=== PATIENT | female | born 1950 | race Caucasian/White ===

== ENCOUNTER 2019-06-27 06:12 | Emergency (ER) | payer MEDICARE, OTHER ==
[2019-06-27] MEDS ORDERED: Labetalol 100 MG/20 ML MDV IV ONE (06:13)
[2019-06-27] MEDS ORDERED: Midazolam 1 MG/ML 2 ML SDV IV ONE (06:13)
[2019-06-27] MEDS ORDERED: Rocuronium 100 MG/10 ML MDV IV ONE (06:13)
[2019-06-27] MEDS ORDERED: Etomidate 2 MG/ML 20 ML SDV IVPUSH ONE (06:50)
[2019-06-27] MEDS ORDERED: Rocuronium 100 MG/10 ML MDV IVPUSH ONE (06:50)
[2019-06-27] MEDS ORDERED: Succinylcholine 200 MG/10 ML MDV IV ONE (06:50)
[2019-06-27] MEDS ORDERED: methylPREDNISolone Sodium Succinate 125 MG/2 ML SDV ONE (06:58)
[2019-06-27] MEDS ORDERED: Albuterol/Ipratropium 3.0-0.5 MG/3 ML Neb Soln ONE (06:58)
[2019-06-27] MEDS ORDERED: methylPREDNISolone Sodium Succinate 125 MG/2 ML SDV IVPUSH ONE (07:01)
[2019-06-27] MEDS ORDERED: Albuterol 0.083% 2.5 MG/3 ML Neb Soln ONE (07:03)
[2019-06-27] MEDS ORDERED: Albuterol 0.083% 2.5 MG/3 ML Neb Soln NEB ONE ×2 (07:19→08:20)
[2019-06-27] MEDS ORDERED: Albuterol/Ipratropium 3.0-0.5 MG/3 ML Neb Soln NEB ONE (07:19)
[2019-06-27] MEDS ORDERED: Azithromycin 500 MG in Sodium Chloride 0.9% 250 ML IV ONE (07:26)
[2019-06-27] MEDS ORDERED: cefTRIAXone 1 GM Vial IVPUSH ONE (07:27)
--- NOTE | 2019-06-27 08:28 | EDM.PDOC ---
ED HPI GENERAL MEDICAL PROBLEM - General Stated Complaint: SOB Time Seen by Provider: 06/27/19 06:18 Source of Information: Reports: EMS, Family (Patient's ) History Limitations: Reports: Other (Patient critically ill and with altered mental status and cannot provide me with any information) - History of Present Illness INITIAL COMMENTS - FREE TEXT/NARRATIVE: 68-year-old female who according to her developed a "cold" about 4-5 days ago and has had cough with nasal congestion and some difficulty breathing. For the past 24 hours, her difficulty breathing has gotten worse and particularly last night she had increasing trouble breathing through the night and this morning slipped out of bed and was unable to get up off of the floor and her called 911. When EMS arrived, they noted the patient to be in severe respiratory distress with O2 saturations in the 50% range. They placed her on 100% nonrebreather with O2 saturations climbing to the 70-80% range and transported the patient. When the patient arrived here, her O2 saturations had climbed into the 97-100% range on 100% nonrebreather and the patient was in obvious respiratory distress with increased work of breathing and increased respiratory rate with audible wheezes. She was verbally responsive but unable to give any history and was disoriented to place, time and situation. According to the the patient had not complained of any chest pain. There has been a subjective fever. No vomiting. Decreased activity and decreased po intake yesterday according to the . The has very similar symptoms to his other than the is not having any trouble breathing. Really no other history can be obtained. There are no other associated signs or symptoms. There are no other modifying factors. Onset: Other (5 days ago with worsening difficulty breathing yesterday and through the night.) Duration: Getting Worse Location: Reports: Other (No complaints of pain) Quality: Reports: Other (Nonapplicable) Severity: Severe (Severe respiratory distress) Context: Reports: Other (As above) Associated Symptoms: Reports: No Other Symptoms (Except as above) Treatments COMPONENT ENGINEER: Reports: Oxygen - Related Data Allergies Allergy/AdvReac Type Severity Reaction Status Date / Time No Known Allergies Allergy Verified 08/23/14 20:12 Home Meds: Home Meds Aspirin [Low Dose Aspirin EC] 2 tab PO QAM 08/23/14 [History] Atenolol/Chlorthalidone [Tenoretic 50] 1 tab PO DAILY 08/23/14 [History] Furosemide [Lasix] 1 tab PO DAILY 08/23/14 [History] Insuln Asp Prot/Insulin Aspart [NovoLOG Mix 70-30] 53 unit SQ QPM 08/23/14 [ History] Insuln Asp Prot/Insulin Aspart [NovoLOG Mix 70-30] 60 unit SQ QAM 08/23/14 [ History] Losartan [Cozaar] 1 tab PO QPM 08/23/14 [History] Past Medical History Cardiovascular History: Reports: High Cholesterol, Hypertension, PVD (With carotid arterial disease status post left CEA.) Genitourinary History: Reports: Chronic Renal Insuffiency Neurological History: Reports: CVA Endocrine/Metabolic History: Reports: Diabetes, Type II Dermatologic History: Reports: Venous Stasis Dermatitis (Edema in both lower legs and on Lasix for this.) - Past Surgical History Cardiovascular Surgical History: Reports: Carotid Endarterectomy Social & Family History - Tobacco Use Smoking Status *Q: Current Every Day Smoker - Alcohol Use Alcohol Use History: No - Living Situation & Occupation Living situation: Reports: Social History Comment: Lives at home alone with her . ED ROS GENERAL - Review of Systems Review Of Systems: Unable To Obtain Reason Not Obtained: Patient critically ill ED EXAM, GENERAL - Physical Exam Exam: See Below Exam Limited By: No Limitations General Appearance: Alert, Severe Distress, Obese Eye Exam: Bilateral Eye: EOMI, Normal Inspection, PERRL Ears: Normal External Exam Ear Exam: Bilateral Ear: Auricle Normal Nose: No Blood, Nasal Drainage Throat/Mouth: Normal Oropharynx, Normal Voice, Other (Moist mucous membranes) Head: Atraumatic, Normocephalic Neck: Normal Inspection, Supple, Non-Tender, Full Range of Motion, Other (Large neck) Respiratory/Chest: Respiratory Distress, Decreased Breath Sounds (Poor air movement throughout), Wheezing, Accessory Muscle Use, Retractions, Prolonged Expiration Cardiovascular: Normal Peripheral Pulses, Tachycardia, Other (Patient's body habitus precludes accurate assessment of JVD) Peripheral Pulses: 2+: Radial (L), Radial (R), Dorsalis Pedis (L), Dorsalis Pedis (R) GI/Abdominal: Soft, No Mass, Abnormal Bowel Sounds (Diminished), Other ( Protuberant) Back Exam: Normal Inspection Extremities: Normal Capillary Refill, Other (Chronic venous stasis with chronic and weeping in both lower legs. No deformity noted.) Neurological: No Motor/Sensory Deficits, Disoriented, Slow to Respond Skin Exam: Warm, Dry, No Rash, Erythema (And some open wounds on both lower legs with the chronic venous stasis) ED RESPIRATORY PROCEDURES - Endotracheal Intubation Time of Intubation: 07:04 ET Intubation Indication: Respiratory Failure Preparation: Suction, Balloon Tested, BVM Set Up Airway Assessment: Obese, Large Tongue Pre-Oxygenation: Assisted with BVM, 100% FiO2 Anesthesia Meds: Etomidate (10 mg), Rocuronium (80 mg) Placement: Orotracheal Cords Visualized: Yes Number of Attempts: 2 (Initially used glide scope and was unable to see cords and aborted this attempt and used BVM to ventilate the patient patient's O2 saturations did drop to the 60s but intubated with a 7.5 ET tube orally. Immediately by Lopressor for apparent the O2 saturations quickly came up to the 100% range) Confirmed By: CO2 Indicator, Bilateral Breath Sounds, Chest Xray Tube Secured By: By Provider Endotracheal Intubation Comment: In addition, an orogastric tube was placed the physician and confirmed with insufflation of air via 60 mL syringe and auscultation over the stomach there was also definite gastric contents aspirated. Chest x-ray did show NG tube going into the stomach. EKG INTERPRETATION EKG Date: 06/27/19 Time: 07:17 Rhythm: NSR Rate (Beats/Min): 97 [place]: Normal P-Wave: Enlarged QRS: Normal ST-T: Normal QT: Normal Comparison: NA - No Prior EKG Course - Vital Signs Last Recorded V/S: Last Vital Signs Temp 36.7 C 06/27/19 08:10 Pulse 109 H 06/27/19 06:15 Resp 30 H 06/27/19 06:15 BP 203/87 H 06/27/19 06:15 Pulse Ox 30 L 06/27/19 06:15 - Orders/Labs/Meds Orders: Active Orders 24 hr Category Date Time Status EKG Documentation Completion [RC] ASDIRECTED Care 06/27/19 10:59 Active RT Aerosol Therapy [RC] ASDIRECTED Care 06/27/19 08:20 Active RT Aerosol Therapy [RC] ASDIRECTED Care 06/27/19 10:07 Active RT Aerosol Therapy [RC] ASDIRECTED Care 06/27/19 10:09 Active Labs: Laboratory Tests 06/27/19 06/27/19 06/27/19 Range/Units 06:45 06:45 06:45 WBC 10.7 (4.5-12.0) X10-3/uL RBC 5.10 (3.23-5.20) x10(6)uL Hgb 15.8 H (11.5-15.5) g/dL Hct 49.8 (30.0-51.3) % MCV 97.7 H (80-96) fL MCH 30.9 (27.7-33.6) pg MCHC 31.6 L (32.2-35.4) g/dL RDW 14.0 (11.5-15.5) % Plt Count 240 (125-369) X10(3)uL MPV 7.8 (7.4-10.4) fL Add Manual Diff Yes Neutrophils % (Manual) 83 H (46-82) % Band Neutrophils % 1 (0-6) % Lymphocytes % (Manual) 12 L (13-37) % Monocytes % (Manual) 4 (4-12) % PT (8.7-11.1) INR (0.89-1.13) APTT (24.4-33.2) SECONDS ABG pH (7.35-7.45) ABG pCO2 (35-45) mmHg ABG pO2 (83-108) mmHg ABG HCO3 (22-26) mmol/L ABG O2 Saturation (96-97) % ABG Base Excess (-2-2) Avi Test POC VBG pH (7.31-7.41) POC VBG pCO2 (41-51) mmHG POC VBG HCO3 (23-28) mmol/L POC VBG Total CO2 (24-29) mmol/L POC VBG Base Excess (-2-3) mmol/L O2 Delivery Device Oxygen Flow Rate L Sodium 136 (135-145) mmol/L Potassium 5.1 (3.5-5.3) mmol/L Chloride 96 L (100-110) mmol/L Carbon Dioxide 34 H (21-32) mmol/L BUN 53 H (7-18) mg/dL Creatinine 1.9 H (0.55-1.02) mg/dL Est Cr Clr Drug Dosing TNP Estimated GFR (MDRD) 26 L (>60) BUN/Creatinine Ratio 27.9 H (9-20) Glucose 282 H (80-116) mg/dL Lactic Acid (0.4-2.0) mmol/L Calcium 9.0 (8.6-10.2) mg/dL Magnesium 1.8 (1.8-2.5) mg/dL Total Bilirubin 0.4 (0.1-1.3) mg/dL AST 27 H (5-25) IU/L ALT 20 (12-36) U/L Alkaline Phosphatase 85 (56-112) IU/L Troponin I < 0.017 L (<0.017-0.056) ng/mL C-Reactive Protein (0.5-0.9) mg/dL NT-Pro-B Natriuret Pep 1484 H* (<=125) pg/mL Total Protein 7.6 (6.0-8.0) g/dL Albumin 3.1 L (3.2-4.6) g/dL Globulin 4.5 g/dL Albumin/Globulin Ratio 0.7 06/27/19 06/27/19 06/27/19 Range/Units 06:45 06:45 06:45 WBC (4.5-12.0) X10-3/uL RBC (3.23-5.20) x10(6)uL Hgb (11.5-15.5) g/dL Hct (30.0-51.3) % MCV (80-96) fL MCH (27.7-33.6) pg MCHC (32.2-35.4) g/dL RDW (11.5-15.5) % Plt Count (125-369) X10(3)uL MPV (7.4-10.4) fL Add Manual Diff Neutrophils % (Manual) (46-82) % Band Neutrophils % (0-6) % Lymphocytes % (Manual) (13-37) % Monocytes % (Manual) (4-12) % PT 9.6 (8.7-11.1) INR 0.92 (0.89-1.13) APTT 30.2 (24.4-33.2) SECONDS ABG pH (7.35-7.45) ABG pCO2 (35-45) mmHg ABG pO2 (83-108) mmHg ABG HCO3 (22-26) mmol/L ABG O2 Saturation (96-97) % ABG Base Excess (-2-2) Avi Test POC VBG pH (7.31-7.41) POC VBG pCO2 (41-51) mmHG POC VBG HCO3 (23-28) mmol/L POC VBG Total CO2 (24-29) mmol/L POC VBG Base Excess (-2-3) mmol/L O2 Delivery Device Oxygen Flow Rate L Sodium (135-145) mmol/L Potassium (3.5-5.3) mmol/L Chloride (100-110) mmol/L Carbon Dioxide (21-32) mmol/L BUN (7-18) mg/dL Creatinine (0.55-1.02) mg/dL Est Cr Clr Drug Dosing Estimated GFR (MDRD) (>60) BUN/Creatinine Ratio (9-20) Glucose (80-116) mg/dL Lactic Acid 1.3 (0.4-2.0) mmol/L Calcium (8.6-10.2) mg/dL Magnesium (1.8-2.5) mg/dL Total Bilirubin (0.1-1.3) mg/dL AST (5-25) IU/L ALT (12-36) U/L Alkaline Phosphatase (56-112) IU/L Troponin I (<0.017-0.056) ng/mL C-Reactive Protein 0.3 L (0.5-0.9) mg/dL NT-Pro-B Natriuret Pep (<=125) pg/mL Total Protein (6.0-8.0) g/dL Albumin (3.2-4.6) g/dL Globulin g/dL Albumin/Globulin Ratio 06/27/19 06/27/19 Range/Units 06:55 08:50 WBC (4.5-12.0) X10-3/uL RBC (3.23-5.20) x10(6)uL Hgb (11.5-15.5) g/dL Hct (30.0-51.3) % MCV (80-96) fL MCH (27.7-33.6) pg MCHC (32.2-35.4) g/dL RDW (11.5-15.5) % Plt Count (125-369) X10(3)uL MPV (7.4-10.4) fL Add Manual Diff Neutrophils % (Manual) (46-82) % Band Neutrophils % (0-6) % Lymphocytes % (Manual) (13-37) % Monocytes % (Manual) (4-12) % PT (8.7-11.1) INR (0.89-1.13) APTT (24.4-33.2) SECONDS ABG pH 7.25 L (7.35-7.45) ABG pCO2 71 H* (35-45) mmHg ABG pO2 372 H (83-108) mmHg ABG HCO3 30 H (22-26) mmol/L ABG O2 Saturation 100 H (96-97) % ABG Base Excess -0.2 (-2-2) Avi Test Passed POC VBG pH 7.15 L (7.31-7.41) POC VBG pCO2 96.8 H (41-51) mmHG POC VBG HCO3 33.4 H (23-28) mmol/L POC VBG Total CO2 36 H (24-29) mmol/L POC VBG Base Excess 4 H (-2-3) mmol/L O2 Delivery Device Ventilator Oxygen Flow Rate 100 L Sodium (135-145) mmol/L Potassium (3.5-5.3) mmol/L Chloride (100-110) mmol/L Carbon Dioxide (21-32) mmol/L BUN (7-18) mg/dL Creatinine (0.55-1.02) mg/dL Est Cr Clr Drug Dosing Estimated GFR (MDRD) (>60) BUN/Creatinine Ratio (9-20) Glucose (80-116) mg/dL Lactic Acid (0.4-2.0) mmol/L Calcium (8.6-10.2) mg/dL Magnesium (1.8-2.5) mg/dL Total Bilirubin (0.1-1.3) mg/dL AST (5-25) IU/L ALT (12-36) U/L Alkaline Phosphatase (56-112) IU/L Troponin I (<0.017-0.056) ng/mL C-Reactive Protein (0.5-0.9) mg/dL NT-Pro-B Natriuret Pep (<=125) pg/mL Total Protein (6.0-8.0) g/dL Albumin (3.2-4.6) g/dL Globulin g/dL Albumin/Globulin Ratio Meds: Medications Discontinued Medications Generic Name Dose Route Start Last Admin Trade Name Geovanny GATES Reason Stop Dose Admin Albuterol Confirm 06/27/19 07:03 06/27/19 09:36 Proventil Neb Soln Administered 06/27/19 07:04 Not Given Dose 2.5 mg .ROUTE .STK-MED ONE Albuterol 5 mg 06/27/19 08:20 06/27/19 08:25 Proventil Neb Soln NEB 06/27/19 08:21 5 mg ONETIME ONE Administration Albuterol 2.5 mg 06/27/19 07:19 06/27/19 07:19 Proventil Neb Soln NEB 06/27/19 07:20 2.5 mg ONETIME ONE Administration Albuterol/Ipratropium Confirm 06/27/19 06:58 06/27/19 09:36 Duoneb 3.0-0.5 Mg/3 Ml Administered 06/27/19 06:59 Not Given Dose 3 ml .ROUTE .STK-MED ONE Albuterol/Ipratropium 3 ml 06/27/19 07:19 06/27/19 07:19 Duoneb 3.0-0.5 Mg/3 Ml NEB 06/27/19 07:20 3 ml ONETIME ONE Administration Ceftriaxone Sodium 1 gm 06/27/19 07:27 06/27/19 07:52 Rocephin IVPUSH 06/27/19 07:28 1 gm ONETIME ONE Administration Etomidate 10 mg 06/27/19 06:50 06/27/19 06:42 Amidate IVPUSH 06/27/19 06:51 10 mg ONETIME ONE Administration Fentanyl Confirm 06/27/19 08:58 06/27/19 10:18 Sublimaze Administered 06/27/19 08:59 Not Given Dose 100 mcg .ROUTE .STK-MED ONE Fentanyl 100 mcg 06/27/19 09:00 06/27/19 09:00 Sublimaze IVPUSH 06/27/19 09:01 100 mcg ONETIME ONE Administration Azithromycin 500 mg/ Sodium 250 mls @ 250 mls/hr 06/27/19 07:26 06/27/19 08: 02 Chloride IV 06/27/19 08:25 250 mls/hr ONETIME ONE Administration Methylprednisolone Sodium Succinate Confirm 06/27/19 06:58 06/27/19 10:11 Solu-Medrol Administered 06/27/19 06:59 Not Given Dose 125 mg .ROUTE .STK-MED ONE Methylprednisolone Sodium Succinate 125 mg 06/27/19 07:01 06/27/19 07:01 Solu-Medrol IVPUSH 06/27/19 07:02 125 mg ONETIME ONE Administration Midazolam HCl Confirm 06/27/19 06:53 06/27/19 10:31 Versed 1 Mg/Ml Administered 06/27/19 06:54 Not Given Dose 2 mg .ROUTE .STK-MED ONE Midazolam HCl Confirm 06/27/19 08:58 06/27/19 10:16 Versed 1 Mg/Ml Administered 06/27/19 08:59 Not Given Dose 2 mg .ROUTE .STK-MED ONE Midazolam HCl 2 mg 06/27/19 09:02 06/27/19 09:02 Versed 1 Mg/Ml IVPUSH 06/27/19 09:03 2 mg ONETIME ONE Administration Rocuronium [place] 80 mg 06/27/19 06:50 06/27/19 06:46 Zemuron IVPUSH 06/27/19 06:51 80 mg NOW ONE Administration - Radiology Interpretation Free Text/Narrative:: Portable chest x-ray shows good ET tube placement with ET tube about 3 cm above the james. The orogastric tube seen going into the stomach. There does appear to be infiltrates in the bases bilaterally. - Re-Assessments/Exams Free Text/Narrative Re-Assessment/Exam: 06/27/19 07:10: The patient has been intubated with a 7.5 ET tube using RSI technique (etomidate and rocuronium were used). Her blood pressure is in the 180 systolic range. Heart rate is in the 100 range. Expirations are 100% on 100 % FiO2, rate of 10 and tidal volume of 500. The patient has received Solu- Medrol 125 mg IV and is receiving nebs/albuterol neb combination nebulizer treatment. The patient has received Versed for additional sedation. The patient will need transfer to a facility with ICU and critical care/pulmonary medicine services which are not available at [facility]. I will discuss the patient's case with the doctors at [facility] in [place] as the as directed me to talk to them. 06/27/19 07:20: I had discussed patient's case with , tank assembler at [facility] in [place], he is requiring additional information before he would discuss accepting the patient. Laboratory tests are back at this time and show a BUN of 53 and a creatinine of 1.9. She also had an elevated blood glucose. Her hemoglobin was 15. Her chest x-ray shows no evidence of congestive heart failure or pulmonary edema. An EKG is being performed at this time. He is results of the EKG and the patient's and and BNP. 06/27/19 07:40: The patient's EKG shows no STEMI pattern and was essentially a normal EKG. The troponin and BNP are still pending at this point. I did call and discuss the patient's case with Dr. Pineda, tank assembler at [facility] in [place], and he would accept the patient in transfer but if the troponin is abnormal then CTA of the chest may be necessary. At this point we're unable to get ground transport for transferring the patient and helicopter area ambulance is not able to fly secondary to weather. We are attempting to arrange fixed wing air transport. 06/27/19 08:00: Patient has remained with O2 saturations in the 100% range on current settings (tidal volume of 500, rate of 10, FiO2 of 100%). Her troponin is normal. Her proBNP is 1484. At this point I did call and discussed the patient's case again with Dr. Pindea and he does not feel that the patient needs CTA of the chest at this point. Fixed wing air transport is coming and should be landing at the airport at 8:15 or 8:20 AM. Her blood pressure is now in the 120 to 130 systolic range with a heart rate in the 80-90 range. The patient has received a nebulizer treatment and she is still having high PIPs. The patient will be suctioned and we will give an additional nebulizer treatment with albuterol. The patient is also being given Rocephin 1 g IV and Zithromax 500 mg IV blood cultures 2 have been obtained and a lactic acid is pending. I will have the patient's blood gas repeated. 06/27/19 08:50: Fixed wing air ambulance crew is here and is packaging the patient for transport. The patient continues with high PIP's and has been suctioned again with scant secretions. She still has bilateral wheezes and has received her second nebulizer treatment in the emergency department. Her repeat blood gas showed a PCO2 of 71 with a pH of 7.25. Her PO2 was 342. Lactic acid was negative. Departure - Departure Time of Disposition: 09:24 Disposition: DC/Tfer to [facility] 02 Condition: Critical Clinical Impression: Chronic renal insufficiency, stage III (moderate) Respiratory failure with hypoxia and hypercapnia Qualifiers: Chronicity: acute Qualified Code(s): J96.01 - Acute respiratory failure with hypoxia Bilateral pneumonia Qualifiers: Pneumonia type: due to unspecified organism Lung location: lower lobe of lung Qualified Code(s): J18.9 - Pneumonia, unspecified organism Reactive airway disease Qualifiers: Asthma severity: severe Asthma persistence: persistent Asthma complication type : with status asthmaticus Qualified Code(s): J45.52 - Severe persistent asthma with status asthmaticus - Discharge Information Referrals: Johnathan White MD [Primary Care Provider] - Forms: ED Department Discharge Critical Care Note - Critical Care Note Total Time (mins): 120 Comments: Total critical care time spent with the patient was 120 minutes. Sepsis Event Note - Focused Exam Date Exam was Performed: 06/28/19 Time Exam was Performed: 08:59 - My Orders Last 24 Hours: My Active Orders 06/27/19 08:20 RT Aerosol Therapy [RC] ASDIRECTED 06/27/19 10:07 RT Aerosol Therapy [RC] ASDIRECTED 06/27/19 10:09 RT Aerosol Therapy [RC] ASDIRECTED 06/27/19 10:59 EKG Documentation Completion [RC] ASDIRECTED - Assessment/Plan Last 24 Hours: My Active Orders 06/27/19 08:20 RT Aerosol Therapy [RC] ASDIRECTED 06/27/19 10:07 RT Aerosol Therapy [RC] ASDIRECTED 06/27/19 10:09 RT Aerosol Therapy [RC] ASDIRECTED 06/27/19 10:59 EKG Documentation Completion [RC] ASDIRECTED
[2019-06-27] MEDS ORDERED: fentaNYL 100 MCG/2 ML SDV ONE (08:58)
[2019-06-27] MEDS ORDERED: Midazolam 1 MG/ML 2 ML SDV ONE (08:58)
[2019-06-27] MEDS ORDERED: fentaNYL 100 MCG/2 ML SDV IVPUSH ONE (09:00)
[2019-06-27] MEDS ORDERED: Midazolam 1 MG/ML 2 ML SDV IVPUSH ONE (09:02)
[2019-06-27 09:48] VITALS: BP 203/87; PULSE 109
[2019-06-27] MEDS: Midazolam 1 MG/ML 2 ML SDV ONE ×2 (10:22→10:31)
== END 2019-06-27 09:24 ==
LOC: FB.ED 06:12
DX: J96.01 Acute respiratory failure with hypoxia (principal); J18.9 Pneumonia, unspecified organism; J45.52 Severe persistent asthma with status asthmaticus; E11.22 Type 2 diabetes mellitus with diabetic chronic kidney disease; I12.9 Hypertensive chronic kidney disease with stage 1 through stage 4 chronic kidney disease, or unspecified chronic kidney disease; N18.3 Chronic kidney disease, stage 3 (moderate); F17.200 Nicotine dependence, unspecified, uncomplicated; Z79.82 Long term (current) use of aspirin; Z79.899 Other long term (current) drug therapy; Z86.73 Personal history of transient ischemic attack (TIA), and cerebral infarction without residual deficits
CPT/HCPCS: 31500; 36410; 36415; 36600; 71045; 80053; 82803; 82962; 83605; 83735; 83880; 84484; 85025; 85610; 85730; 86140; 87040; 87804; 87804-59; 93005; 94640; 96365; 96375; 99291; 99291-25; 99292; J0330; J0456; J0696; J2250; J2930; J3010; J3490; J7050; J7620-GY

== ENCOUNTER 2019-12-19 07:34 | Emergency (ER) | payer MEDICARE, OTHER ==
[2019-12-19] MEDS ORDERED: Sodium Chloride 0.9% 10 ML Syringe FLUSH PRN (08:30)
--- NOTE | 2019-12-19 08:47 | EDM.PDOC ---
ED HPI GENERAL MEDICAL PROBLEM - General Chief Complaint: Lower Extremity Injury/Pain Stated Complaint: LT HIP PAIN Time Seen by Provider: 12/19/19 08:10 Source of Information: Reports: Patient History Limitations: Reports: No Limitations - History of Present Illness INITIAL COMMENTS - FREE TEXT/NARRATIVE: Patient presented to the ED from the [facility] because of left hip pain. She fell from her recliner last night and landed on her left hip. Since then she was not able to ambulate. Left Hip Pain Score (Numeric/FACES): 8 - Related Data Allergies Allergy/AdvReac Type Severity Reaction Status Date / Time No Known Allergies Allergy Verified 08/23/14 20:12 Home Meds: Home Meds Aspirin [Low Dose Aspirin EC] 2 tab PO QAM 08/23/14 [History] Atenolol/Chlorthalidone [Tenoretic 50] 1 tab PO DAILY 08/23/14 [History] Furosemide [Lasix] 1 tab PO DAILY 08/23/14 [History] Insuln Asp Prot/Insulin Aspart [NovoLOG Mix 70-30] 53 unit SQ QPM 08/23/14 [History] Insuln Asp Prot/Insulin Aspart [NovoLOG Mix 70-30] 60 unit SQ QAM 08/23/14 [History] Losartan [Cozaar] 1 tab PO QPM 08/23/14 [History] Past Medical History Cardiovascular History: Reports: High Cholesterol, Hypertension, PVD (With carotid arterial disease status post left CEA.) Genitourinary History: Reports: Chronic Renal Insuffiency Neurological History: Reports: CVA Endocrine/Metabolic History: Reports: Diabetes, Type II Dermatologic History: Reports: Venous Stasis Dermatitis (Edema in both lower legs and on Lasix for this.) - Past Surgical History Cardiovascular Surgical History: Reports: Carotid Endarterectomy Social & Family History - Family History Family Medical History: Noncontributory - Tobacco Use Smoking Status *Q: Former Smoker Used Tobacco, but Quit: Yes - Living Situation & Occupation Living situation: Reports: Review of Systems - Review of Systems Review Of Systems: See Below Constitutional: Reports: No Symptoms Ears: Reports: No Symptoms Nose: Reports: No Symptoms Mouth/Throat: Reports: No Symptoms Respiratory: Reports: Wheezing Cardiovascular: Reports: No Symptoms GI/Abdominal: Reports: No Symptoms Musculoskeletal: Reports: Other (left hip pain) Skin: Reports: No Symptoms Neurological: Reports: No Symptoms ED EXAM, GENERAL - Physical Exam Exam: See Below Exam Limited By: No Limitations General Appearance: Alert, No Apparent Distress Eye Exam: Bilateral Eye: PERRL Ears: Normal External Exam, Normal Canal Nose: Normal Inspection, Normal Mucosa Throat/Mouth: Normal Inspection, Normal Lips, Normal Teeth Head: Atraumatic, Normocephalic Neck: Normal Inspection, Supple, Non-Tender, Full Range of Motion Respiratory/Chest: No Respiratory Distress, Lungs Clear, Normal Breath Sounds, No Accessory Muscle Use, Chest Non-Tender Cardiovascular: Normal Peripheral Pulses, Regular Rate, Rhythm, No Edema, No Gallop, No JVD, No Murmur, No Rub Back Exam: Normal Inspection, Full Range of Motion Extremities: Normal Inspection, Normal Range of Motion, Other (tenderness left hip) Neurological: Alert, Oriented, CN II-XII Intact, Normal Cognition Course - Vital Signs Text/Narrative:: Labs/EKG/CXR-pending Case discussed with Dr Jones Dilaudid 2 mg IV x1 Rafael was informed of patient's condition and the transfer to [place] Last Recorded V/S: Last Vital Signs Temp 37.3 C 12/19/19 08:07 Pulse 77 12/19/19 08:07 Resp 16 12/19/19 08:07 BP 105/69 12/19/19 08:07 Pulse Ox 87 L 12/19/19 08:07 - Orders/Labs/Meds Orders: Active Orders 24 hr Category Date Time Status Chest 1V Frontal [CR] Stat Exams 12/19/19 08:30 Ordered Hip Min 2V or 3V w Pelvis Lt [CR] Stat Exams 12/19/19 07:38 Taken CBC WITH AUTO DIFF [HEME] Stat Lab 12/19/19 08:30 Ordered COMPREHENSIVE METABOLIC PN,CMP [CHEM] Stat Lab 12/19/19 08:30 Ordered CORONAVIRUS COVID-19 PCR PHL Stat Lab 12/19/19 08:31 Ordered INR,PT,PROTHROMBIN TIME [COAG] Stat Lab 12/19/19 08:30 Ordered PTT,PARTIAL THROMBOPLSTIN TIME [COAG] Stat Lab 12/19/19 08:30 Ordered Sodium Chloride 0.9% [Saline Flush] Med 12/19/19 08:30 Ordered 10 ml FLUSH ASDIRECTED PRN Saline Lock Insert [OM.PC] Routine Oth 12/19/19 08:30 Ordered Medication Orders Sodium Chloride (Saline Flush) 10 ml FLUSH ASDIRECTED PRN PRN Reason: Keep Vein Open Meds: Medications Generic Name Dose Route Start Last Admin Trade Name Freq PRN Reason Stop Dose Admin Sodium Chloride 10 ml 12/19/19 08:30 Saline Flush FLUSH ASDIRECTED PRN Keep Vein Open Departure - Departure Time of Disposition: 08:50 Disposition: DC/Tfer to Acute Hospital 02 Condition: Good Clinical Impression: Femoral fracture - Discharge Information Referrals: Johnathan White MD [Primary Care Provider] - Sepsis Event Note (ED) - Evaluation Sepsis Screening Result: No Definite Risk - Focused Exam Vital Signs: Vital Signs Temp Pulse Resp BP Pulse Ox 12/19/19 08:07 37.3 C 77 16 105/69 87 L - My Orders Last 24 Hours: My Active Orders 12/19/19 07:38 Hip Min 2V or 3V w Pelvis Lt [CR] Stat 12/19/19 08:30 Chest 1V Frontal [CR] Stat CBC WITH AUTO DIFF [HEME] Stat COMPREHENSIVE METABOLIC PN,CMP [CHEM] Stat INR,PT,PROTHROMBIN TIME [COAG] Stat PTT,PARTIAL THROMBOPLSTIN TIME [COAG] Stat Sodium Chloride 0.9% [Saline Flush] 10 ml FLUSH ASDIRECTED PRN Saline Lock Insert [OM.PC] Routine 12/19/19 08:31 CORONAVIRUS COVID-19 PCR PHL Stat - Assessment/Plan Last 24 Hours: My Active Orders 12/19/19 07:38 Hip Min 2V or 3V w Pelvis Lt [CR] Stat 12/19/19 08:30 Chest 1V Frontal [CR] Stat CBC WITH AUTO DIFF [HEME] Stat COMPREHENSIVE METABOLIC PN,CMP [CHEM] Stat INR,PT,PROTHROMBIN TIME [COAG] Stat PTT,PARTIAL THROMBOPLSTIN TIME [COAG] Stat Sodium Chloride 0.9% [Saline Flush] 10 ml FLUSH ASDIRECTED PRN Saline Lock Insert [OM.PC] Routine 12/19/19 08:31 CORONAVIRUS COVID-19 PCR PHL Stat
[2019-12-19] MEDS ORDERED: HYDROmorphone 2 MG/ML SDV IVPUSH ONE (08:49)
[2019-12-19] MEDS ORDERED: Sodium Chloride 0.9% 1,000 ML IV SCH (09:00)
--- NOTE | 2019-12-19 12:19 | CR ---
INDICATION: COPD. CHEST ONE VIEW: AP upright portable view of the chest was obtained 12/19/19 and compared with 11/21/19 and 06/27/19. The heart appears enlarged. The aorta is tortuous with calcification in the arch. The possibility of some infiltrate at the the left lung base is a consideration versus atelectasis in that area. Evidence of exogenous obesity is again noted. MTDD
--- NOTE | 2019-12-19 12:25 | CR ---
INDICATION: Left hip pain related to a fall. LEFT HIP WITH PELVIS: Two frontal views of the pelvis with a frontal view of the left hip and a lateral - oblique view of the left hip revealed a femoral neck fracture extending from the lateral aspect of the femoral head into the medial aspect of the intertrochanteric area with lateral angulation at the fracture site. Degenerative changes are noted at the hip joints with the joint spaces fairly well preserved. Mild degenerative changes are also noted at the sacroiliac joints. More prominent hypertrophic degenerative changes noted in the visualized lumbosacral spine with evidence of disk disease. Incidentally noted were arterial calcifications. IMPRESSION: Femoral neck fracture with moderate deformity on the left. MTDD
[2019-12-19 22:07] VITALS: BP 147/82; PULSE 79
== END 2019-12-19 09:45 ==
LOC: FB.ED 07:34
DX: S72.002A Fracture of unspecified part of neck of left femur, initial encounter for closed fracture (principal); I12.9 Hypertensive chronic kidney disease with stage 1 through stage 4 chronic kidney disease, or unspecified chronic kidney disease; E11.22 Type 2 diabetes mellitus with diabetic chronic kidney disease; N18.9 Chronic kidney disease, unspecified; E11.51 Type 2 diabetes mellitus with diabetic peripheral angiopathy without gangrene; Z86.73 Personal history of transient ischemic attack (TIA), and cerebral infarction without residual deficits; Z87.891 Personal history of nicotine dependence; Z79.899 Other long term (current) drug therapy; W08.XXXA Fall from other furniture, initial encounter
CPT/HCPCS: 36415; 71045; 73502-LT; 80053; 85025; 85610; 85730; 96374; 99284-25; J1170; J7030; U0002

== ENCOUNTER 2020-02-19 06:40 | Emergency (ER) | payer MEDICARE, OTHER ==
[2020-02-19 08:12] LABS: HEMOGLOBIN A1C 7.8 % (<5.7)
--- NOTE | 2020-02-19 08:19 | EDM.PDOC ---
ED HPI GENERAL MEDICAL PROBLEM - General Chief Complaint: Chest Pain Stated Complaint: CHEST PAIN Time Seen by Provider: 02/19/20 07:10 Source of Information: Reports: Patient, Long Term Records, Old Records History Limitations: Reports: No Limitations - History of Present Illness INITIAL COMMENTS - FREE TEXT/NARRATIVE: Julia comes to [facility] ED from SNF with a reported episode of chest heaviness and SOB at 2 am this morning, sxs lasting about 15 minutes and then subsided. There was no khushbu chest pain, palpitations, diaphoresis, wheezing or GI upset. She has been having some intermittent cough over the past 2 days. She is currently asx. Chest Pain Score (Numeric/FACES): 3 - Related Data Allergies Allergy/AdvReac Type Severity Reaction Status Date / Time No Known Allergies Allergy Verified 08/23/14 20:12 Home Meds: Home Meds Aspirin [Low Dose Aspirin EC] 2 tab PO QAM 08/23/14 [History] Atenolol/Chlorthalidone [Tenoretic 50] 1 tab PO DAILY 08/23/14 [History] Furosemide [Lasix] 1 tab PO DAILY 08/23/14 [History] Insuln Asp Prot/Insulin Aspart [NovoLOG Mix 70-30] 53 unit SQ QPM 08/23/14 [History] Insuln Asp Prot/Insulin Aspart [NovoLOG Mix 70-30] 60 unit SQ QAM 08/23/14 [History] Losartan [Cozaar] 1 tab PO QPM 08/23/14 [History] Past Medical History Cardiovascular History: Reports: High Cholesterol, Hypertension, PVD Genitourinary History: Reports: Chronic Renal Insuffiency Neurological History: Reports: CVA Endocrine/Metabolic History: Reports: Diabetes, Type II Dermatologic History: Reports: Venous Stasis Dermatitis - Past Surgical History Cardiovascular Surgical History: Reports: Carotid Endarterectomy Social & Family History - Family History Family Medical History: Noncontributory - Tobacco Use Smoking Status *Q: Unknown Ever Smoked - Living Situation & Occupation Living situation: Reports: ED ROS GENERAL - Review of Systems Review Of Systems: See Below Constitutional: Reports: No Symptoms HEENT: Reports: No Symptoms Respiratory: Reports: Cough Cardiovascular: Reports: Other (chest heaviness) Endocrine: Reports: No Symptoms GI/Abdominal: Reports: No Symptoms : Reports: No Symptoms Musculoskeletal: Reports: No Symptoms Skin: Reports: No Symptoms Neurological: Reports: Pre-Existing Deficit (L hemiparesis) Psychiatric: Reports: No Symptoms Hematologic/Lymphatic: Reports: No Symptoms Immunologic: Reports: No Symptoms ED EXAM, GENERAL - Physical Exam Exam: See Below Exam Limited By: Physical Impairment General Appearance: Alert, WD/WN, No Apparent Distress, Obese Eye Exam: Bilateral Eye: EOMI, Normal Inspection, PERRL Ears: Normal External Exam Nose: Normal Inspection Throat/Mouth: Normal Inspection, Normal Voice Neck: Normal Inspection, Supple, Non-Tender Respiratory/Chest: Lungs Clear, Normal Breath Sounds, Chest Non-Tender Cardiovascular: Regular Rate, Rhythm, No Gallop, No JVD, No Murmur GI/Abdominal: Normal Bowel Sounds, Soft, Non-Tender, No Organomegaly, No Distention, No Mass (Female) Exam: Deferred Rectal (Female) Exam: Deferred Back Exam: Normal Inspection Extremities: Other (L hemiparesis) Neurological: Alert, Oriented, CN II-XII Intact Psychiatric: Normal Affect, Normal Mood Skin Exam: Warm, Dry, Intact, No Rash, Ecchymosis Lymphatic: No Adenopathy Course - Vital Signs Text/Narrative:: Following assessment, some screening labs were performed, and note: Hgb 12.1 gm, WBC 11,000, plts 248,000; ddimer .78; Troponin I normal; BUN 33, Cr 1.4, nonFBS 238 mg%; HgbA1c 7.8%; UA pending; port chest x ray: mild cardiac enlargement, no active infiltrate. She is medically cleared to return to SNF. Last Recorded V/S: Last Vital Signs Temp 36.6 C 02/19/20 06:55 Pulse 85 02/19/20 06:55 Resp 16 02/19/20 06:55 BP 152/70 H 02/19/20 06:55 Pulse Ox 95 02/19/20 06:55 - Orders/Labs/Meds Orders: Active Orders 24 hr Category Date Time Status EKG Documentation Completion [RC] ASDIRECTED Care 02/19/20 07:20 Active Chest 1V Frontal [CR] Stat Exams 02/19/20 07:19 Taken URINALYSIS W/MICROSCOPIC [UA W/MICROSCOPIC] [URIN] Stat Lab 02/19/20 07:19 Ordered EKG 12 Lead [EK] Routine Ther 02/19/20 07:19 Ordered Labs: Laboratory Tests 02/19/20 02/19/20 02/19/20 Range/Units 07:45 07:45 07:45 WBC 11.0 (4.5-12.0) X10-3/uL RBC 4.12 (3.23-5.20) x10(6)uL Hgb 12.1 (11.5-15.5) g/dL Hct 37.5 (30.0-51.3) % MCV 91.1 (80-96) fL MCH 29.3 (27.7-33.6) pg MCHC 32.2 (32.2-35.4) g/dL RDW 14.3 (11.5-15.5) % Plt Count 248 (125-369) X10(3)uL MPV 8.0 (7.4-10.4) fL Neut % (Auto) 63.8 (46-82) % Lymph % (Auto) 21.6 (13-37) % [place] % (Auto) 5.9 (4-12) % Eos % (Auto) 8 H (1.0-5.0) % Baso % (Auto) 0 (0-2) % Neut # (Auto) 7.0 (1.6-8.3) # Lymph # (Auto) 2.4 (0.6-5.0) # [place] # (Auto) 0.7 (0.0-1.3) # Eos # (Auto) 0.9 H (0.0-0.8) # Baso # (Auto) 0.0 (0.0-0.2) # D-Dimer, Quantitative 0.78 H (0.0-0.59) mg/LFEU Sodium 136 (135-145) mmol/L Potassium 4.5 (3.5-5.3) mmol/L Chloride 98 L (100-110) mmol/L Carbon Dioxide 34 H (21-32) mmol/L BUN 33 H D (7-18) mg/dL Creatinine 1.4 H (0.55-1.02) mg/dL Est Cr Clr Drug Dosing TNP Estimated GFR (MDRD) 37 L (>60) BUN/Creatinine Ratio 23.6 H (9-20) Glucose 238 H D (80-116) mg/dL Hemoglobin A1c (<5.7) % Calcium 10.0 (8.6-10.2) mg/dL Total Bilirubin 0.3 (0.1-1.3) mg/dL AST 25 (5-25) IU/L ALT 33 D (12-36) U/L Alkaline Phosphatase 79 (56-112) IU/L Troponin I (4.0-60.3) pg/mL Total Protein 6.3 (6.0-8.0) g/dL Albumin 2.9 L (3.2-4.6) g/dL Globulin 3.4 g/dL Albumin/Globulin Ratio 0.9 02/19/20 02/19/20 Range/Units 07:45 07:45 WBC (4.5-12.0) X10-3/uL RBC (3.23-5.20) x10(6)uL Hgb (11.5-15.5) g/dL Hct (30.0-51.3) % MCV (80-96) fL MCH (27.7-33.6) pg MCHC (32.2-35.4) g/dL RDW (11.5-15.5) % Plt Count (125-369) X10(3)uL MPV (7.4-10.4) fL Neut % (Auto) (46-82) % Lymph % (Auto) (13-37) % [place] % (Auto) (4-12) % Eos % (Auto) (1.0-5.0) % Baso % (Auto) (0-2) % Neut # (Auto) (1.6-8.3) # Lymph # (Auto) (0.6-5.0) # [place] # (Auto) (0.0-1.3) # Eos # (Auto) (0.0-0.8) # Baso # (Auto) (0.0-0.2) # D-Dimer, Quantitative (0.0-0.59) mg/LFEU Sodium (135-145) mmol/L Potassium (3.5-5.3) mmol/L Chloride (100-110) mmol/L Carbon Dioxide (21-32) mmol/L BUN (7-18) mg/dL Creatinine (0.55-1.02) mg/dL Est Cr Clr Drug Dosing Estimated GFR (MDRD) (>60) BUN/Creatinine Ratio (9-20) Glucose (80-116) mg/dL Hemoglobin A1c 7.8 H (<5.7) % Calcium (8.6-10.2) mg/dL Total Bilirubin (0.1-1.3) mg/dL AST (5-25) IU/L ALT (12-36) U/L Alkaline Phosphatase (56-112) IU/L Troponin I 5.3 (4.0-60.3) pg/mL Total Protein (6.0-8.0) g/dL Albumin (3.2-4.6) g/dL Globulin g/dL Albumin/Globulin Ratio Departure - Departure Time of Disposition: 08:22 Disposition: DC/Tfer to [facility] 03 Reason for Transfer *Q: Primary PCI Indicated Condition: Fair Clinical Impression: Atypical chest pain Referrals: Johnathan White MD [Primary Care Provider] - Sepsis Event Note (ED) - Evaluation Sepsis Screening Result: No Definite Risk - Focused Exam Vital Signs: Vital Signs Temp Pulse Resp BP Pulse Ox 02/19/20 06:55 36.6 C 85 16 152/70 H 95 - Problem List & Annotations (1) Atypical chest pain SNOMED Code(s): 414811108 Code(s): R07.89 - OTHER CHEST PAIN Status: Acute Current Visit: Yes Annotation/Comment:: Medical assessment was negative for acute cardiorespiratory event. She remains clincally stable, and will return to the SNF with current meds and therapies. - Problem List Review Problem List Initiated/Reviewed/Updated: Yes - My Orders Last 24 Hours: My Active Orders 02/19/20 07:19 Chest 1V Frontal [CR] Stat URINALYSIS W/MICROSCOPIC [UA W/MICROSCOPIC] [URIN] Stat EKG 12 Lead [EK] Routine 02/19/20 07:20 EKG Documentation Completion [RC] ASDIRECTED - Assessment/Plan Last 24 Hours: My Active Orders 02/19/20 07:19 Chest 1V Frontal [CR] Stat URINALYSIS W/MICROSCOPIC [UA W/MICROSCOPIC] [URIN] Stat EKG 12 Lead [EK] Routine 02/19/20 07:20 EKG Documentation Completion [RC] ASDIRECTED Plan: Follow up with PCP if needed.
[2020-02-19 09:08] VITALS: BP 146/52; PULSE 90
--- NOTE | 2020-02-19 10:05 | CR ---
INDICATION: Short of breath. CHEST ONE VIEW: AP upright view of the chest 02/19/20 was compared with 12/19/19 and 11/21/19. Poor inspiration emphasizes markings and heart size as well as the AP positioning. The heart may be enlarged. A linear strand compatible with atelectasis and/or fibrosis is noted in the lower lung field on the left. There also appears to be some minimal infiltrate at the left costophrenic angle and left lower lobe. Minimal or early CHF is difficult to exclude with this quality of examination. Suspect that a full inspiration PA and lateral view of the chest would be helpful for further evaluation in this patient. MTDD
== END 2020-02-19 08:31 ==
LOC: FB.ED 06:40
DX: R07.89 Other chest pain (principal); R06.02 Shortness of breath; R05 Cough; I12.9 Hypertensive chronic kidney disease with stage 1 through stage 4 chronic kidney disease, or unspecified chronic kidney disease; E11.22 Type 2 diabetes mellitus with diabetic chronic kidney disease; N18.9 Chronic kidney disease, unspecified; E11.51 Type 2 diabetes mellitus with diabetic peripheral angiopathy without gangrene; E66.9 Obesity, unspecified; G81.94 Hemiplegia, unspecified affecting left nondominant side; Z79.4 Long term (current) use of insulin; Z79.899 Other long term (current) drug therapy; Z86.73 Personal history of transient ischemic attack (TIA), and cerebral infarction without residual deficits
CPT/HCPCS: 36415; 71045; 80053; 83036; 84484; 85025; 85379; 93005; 99285; 99285-25

== ENCOUNTER 2020-02-26 14:29 | Emergency (ER) | payer MEDICARE, OTHER ==
--- NOTE | 2020-02-26 15:12 | EDM.PDOC ---
ED HPI GENERAL MEDICAL PROBLEM - General Stated Complaint: RESPIRATION Time Seen by Provider: 02/26/20 15:08 Source of Information: Reports: Patient History Limitations: Reports: No Limitations - History of Present Illness INITIAL COMMENTS - FREE TEXT/NARRATIVE: pt c/o dry cough X 4 days that seems to have come wet today, denies fever or chills, also denies SOB or chest pain,pt lives [place], has Hx of COPD, recurrent pneumonias and Hx of O2 dependancy, pt has been tolerating her diet well and appear to be doing well otherwise. - Related Data Allergies Allergy/AdvReac Type Severity Reaction Status Date / Time No Known Allergies Allergy Verified 02/26/20 15:07 Home Meds: Home Meds Aspirin [Low Dose Aspirin EC] 2 tab PO QAM 08/23/14 [History] Atenolol/Chlorthalidone [Tenoretic 50] 1 tab PO DAILY 08/23/14 [History] Furosemide [Lasix] 1 tab PO DAILY 08/23/14 [History] Insuln Asp Prot/Insulin Aspart [NovoLOG Mix 70-30] 53 unit SQ QPM 08/23/14 [History] Insuln Asp Prot/Insulin Aspart [NovoLOG Mix 70-30] 60 unit SQ QAM 08/23/14 [History] Losartan [Cozaar] 1 tab PO QPM 08/23/14 [History] Past Medical History Cardiovascular History: Reports: High Cholesterol, Hypertension, PVD Genitourinary History: Reports: Chronic Renal Insuffiency Neurological History: Reports: CVA Endocrine/Metabolic History: Reports: Diabetes, Type II Dermatologic History: Reports: Venous Stasis Dermatitis - Past Surgical History Cardiovascular Surgical History: Reports: Carotid Endarterectomy Social & Family History - Family History Family Medical History: Noncontributory - Living Situation & Occupation Living situation: Reports: ED ROS GENERAL - Review of Systems Review Of Systems: See Below Constitutional: Denies: Fever, Chills, Fatigue HEENT: Reports: No Symptoms Respiratory: Reports: Wheezing, Cough. Denies: Shortness of Breath Cardiovascular: Reports: No Symptoms GI/Abdominal: Reports: No Symptoms : Reports: No Symptoms Musculoskeletal: Reports: No Symptoms Skin: Reports: No Symptoms ED EXAM, GENERAL - Physical Exam Exam: See Below Exam Limited By: No Limitations General Appearance: Alert, No Apparent Distress Eye Exam: Bilateral Eye: Normal Inspection Nose: Normal Inspection Throat/Mouth: Normal Inspection, Normal Oropharynx Head: Atraumatic, Normocephalic Neck: Normal Inspection, Supple, Non-Tender Respiratory/Chest: No Respiratory Distress, Wheezing. No: Stridor Cardiovascular: Normal Peripheral Pulses, Regular Rate, Rhythm GI/Abdominal: Normal Bowel Sounds, Soft, Non-Tender Extremities: Normal Inspection Neurological: Alert, Oriented, CN II-XII Intact, No Motor/Sensory Deficits Psychiatric: Normal Affect Skin Exam: Warm Course - Vital Signs Text/Narrative:: pt has mild LLL infiltrates, WBC is at 21 k , cr 1.3 , pt is mildly symptomatic here , sats at 98% and no c/o dyspnea, also tolerating her diet well at [place]. pt can be treated as out-patient for her pneumonia , will obtain blood culture, she will be given rocephin here and continued on low dose of Levaquin daily for 10 days. Last Recorded V/S: Last Vital Signs Temp 36.2 C 02/26/20 14:30 Pulse 86 02/26/20 14:30 Resp 20 02/26/20 14:30 BP 153/62 H 02/26/20 14:30 Pulse Ox 98 02/26/20 14:30 - Orders/Labs/Meds Orders: Active Orders 24 hr Category Date Time Status Chest 1V Frontal [CR] Stat Exams 02/26/20 15:12 Taken Labs: Laboratory Tests 02/26/20 02/26/20 02/26/20 Range/Units 15:28 15:28 15:28 WBC 21.2 H (4.5-12.0) X10-3/uL RBC 4.20 (3.23-5.20) x10(6)uL Hgb 12.4 (11.5-15.5) g/dL Hct 38.4 (30.0-51.3) % MCV 91.6 (80-96) fL MCH 29.4 (27.7-33.6) pg MCHC 32.1 L (32.2-35.4) g/dL RDW 14.1 (11.5-15.5) % Plt Count 271 (125-369) X10(3)uL MPV 8.6 (7.4-10.4) fL Add Manual Diff Yes Neutrophils % (Manual) 86 H (46-82) % Band Neutrophils % 1 (0-6) % Lymphocytes % (Manual) 8 L (13-37) % Monocytes % (Manual) 4 (4-12) % Basophils % (Manual) 1 (0-2) % Sodium 137 (135-145) mmol/L Potassium 4.6 (3.5-5.3) mmol/L Chloride 97 L (100-110) mmol/L Carbon Dioxide 34 H (21-32) mmol/L BUN 26 H (7-18) mg/dL Creatinine 1.3 H (0.55-1.02) mg/dL Est Cr Clr Drug Dosing TNP Estimated GFR (MDRD) 41 L (>60) BUN/Creatinine Ratio 20.0 (9-20) Glucose 273 H (80-116) mg/dL Calcium 9.9 (8.6-10.2) mg/dL Total Bilirubin 0.3 (0.1-1.3) mg/dL AST 16 D (5-25) IU/L ALT 24 D (12-36) U/L Alkaline Phosphatase 78 (56-112) IU/L NT-Pro-B Natriuret Pep 455 H (<=125) pg/mL Total Protein 6.1 (6.0-8.0) g/dL Albumin 2.9 L (3.2-4.6) g/dL Globulin 3.2 g/dL Albumin/Globulin Ratio 0.9 Departure - Departure Time of Disposition: 16:32 Disposition: Home, Self-Care 01 Clinical Impression: Pneumonia Qualifiers: Pneumonia type: due to unspecified organism Laterality: bilateral Lung location: lower lobe of lung Qualified Code(s): J16.8 - Pneumonia due to other specified infectious organisms - Discharge Information Referrals: PCP,None [Ordering Only Provider] - Sepsis Event Note (ED) - Focused Exam Vital Signs: Vital Signs Temp Pulse Resp BP Pulse Ox 02/26/20 14:30 36.2 C 86 20 153/62 H 98 - My Orders Last 24 Hours: My Active Orders 02/26/20 15:12 Chest 1V Frontal [CR] Stat - Assessment/Plan Last 24 Hours: My Active Orders 02/26/20 15:12 Chest 1V Frontal [CR] Stat
[2020-02-26] MEDS ORDERED: Levofloxacin/Dextrose 5%-Water 250 MG in Premix Bag 1 BAG IV ONE (16:37)
[2020-02-26] MEDS ORDERED: cefTRIAXone 2 GM Vial IVPUSH ONE (17:20)
[2020-02-26] MEDS: cefTRIAXone 2 GM Vial IVPUSH ONE ×2 (17:40→18:20)
[2020-02-26 19:30] VITALS: BP 152/57; PULSE 85
--- NOTE | 2020-05-08 09:13 | CR ---
INDICATION: Cough. CHEST, ONE VIEW: Portable AP upright view of the chest was obtained 02/26/2020 and compared with 02/22/2020 and 02/19/2020 again revealing the heart to be somewhat prominent in size and for size by poor inspiration and AP positioning. There is a linear density in the mid lung field on the left, which may represent subsegmental atelectasis. Infiltrate is again suspected at the left lung base, but appears less prominent, raising question of somewhat resolved pneumonia or persistent minimal pneumonia. Some linear changes at the left costophrenic angle suggests linear atelectasis and/or fibrosis in that area. The right lung and pleural space remain unremarkable. The aorta is somewhat tortuous with calcification in the arch. Evidence of exogenous obesity is noted. IMPRESSION: 1. Findings suggest continued infiltrate and possibly atelectasis at the left lung base with probable atelectatic changes in the upper middle lung field on the left also noted. The linear atelectatic appearing changes in the upper middle lung field and near the costophrenic angle on the left are new compared with the previous study. 2. ASD aorta. 3. Exogenous obesity. MTDD
== END 2020-02-26 18:23 | disposition home or self-care (01) ==
LOC: FB.ED 14:29
DX: J16.8 Pneumonia due to other specified infectious organisms (principal); I10 Essential (primary) hypertension; E11.51 Type 2 diabetes mellitus with diabetic peripheral angiopathy without gangrene; E11.22 Type 2 diabetes mellitus with diabetic chronic kidney disease; I12.9 Hypertensive chronic kidney disease with stage 1 through stage 4 chronic kidney disease, or unspecified chronic kidney disease; N18.9 Chronic kidney disease, unspecified; Z86.73 Personal history of transient ischemic attack (TIA), and cerebral infarction without residual deficits; Z79.82 Long term (current) use of aspirin; Z79.4 Long term (current) use of insulin; Z79.899 Other long term (current) drug therapy
CPT/HCPCS: 36415; 71045; 80053; 83880; 85025; 93005; 96365; 96375; 99283; J0696; J1956

== ENCOUNTER 2020-05-24 14:29 | Emergency (ER) | payer MEDICARE, OTHER ==
[2020-05-24] MEDS ORDERED: Amoxicillin/Clavulanate K 875-125 MG Tab PO ONE (14:30)
--- NOTE | 2020-05-24 15:11 | EDM.PDOC ---
ED HPI GENERAL MEDICAL PROBLEM - General Chief Complaint: General Stated Complaint: LUMP Time Seen by Provider: 05/24/20 15:08 Source of Information: Reports: Patient, Old Records, RN History Limitations: Reports: No Limitations - History of Present Illness INITIAL COMMENTS - FREE TEXT/NARRATIVE: Julia is a 69 you with swelling and lump on the left breast for a few days. No fever. Has also been more emotionally needy,slightly confused according to the nursing staff at the - Related Data Allergies Allergy/AdvReac Type Severity Reaction Status Date / Time No Known Allergies Allergy Verified 05/24/20 14:50 Home Meds: Home Meds Aspirin [Low Dose Aspirin EC] 2 tab PO QAM 08/23/14 [History] Atenolol/Chlorthalidone [Tenoretic 50] 1 tab PO DAILY 08/23/14 [History] Furosemide [Lasix] 1 tab PO DAILY 08/23/14 [History] Insuln Asp Prot/Insulin Aspart [NovoLOG Mix 70-30] 53 unit SQ QPM 08/23/14 [History] Insuln Asp Prot/Insulin Aspart [NovoLOG Mix 70-30] 60 unit SQ QAM 08/23/14 [History] Losartan [Cozaar] 1 tab PO QPM 08/23/14 [History] Past Medical History Cardiovascular History: Reports: High Cholesterol, Hypertension, PVD Respiratory History: Reports: COPD Gastrointestinal History: Reports: GERD Genitourinary History: Reports: Chronic Renal Insuffiency Musculoskeletal History: Reports: Osteoarthritis Neurological History: Reports: CVA Psychiatric History: Reports: Anxiety Endocrine/Metabolic History: Reports: Diabetes, Type II Dermatologic History: Reports: Venous Stasis Dermatitis - Past Surgical History Cardiovascular Surgical History: Reports: Carotid Endarterectomy Social & Family History - Family History Family Medical History: No Pertinent Family History - Caffeine Use Caffeine Use: Reports: Coffee - Living Situation & Occupation Living situation: Reports: ED ROS GENERAL - Review of Systems Review Of Systems: Comprehensive ROS is negative, except as noted in HPI. ED EXAM, GENERAL - Physical Exam Exam: See Below Free Text/Narrative:: Left breast has a lump around the areola. tender firm,and warm. Exam Limited By: No Limitations General Appearance: Alert, WD/WN, No Apparent Distress Throat/Mouth: Normal Inspection Neck: Normal Inspection Cardiovascular: Normal Peripheral Pulses Course - Vital Signs Last Recorded V/S: Last Vital Signs Temp 98 F 05/24/20 14:29 Pulse 81 05/24/20 14:29 Resp 18 05/24/20 14:29 BP 159/62 H 05/24/20 14:29 Pulse Ox 98 05/24/20 14:29 - Orders/Labs/Meds Orders: Active Orders 24 hr Category Date Time Status Breast Complete Lt [US] Stat Exams 05/24/20 15:07 Ordered Labs: Laboratory Tests 05/24/20 Range/Units 15:00 C-Reactive Protein 2.4 H (0.5-0.9) mg/dL Departure - Departure Time of Disposition: 16:43 Disposition: Home, Self-Care 01 Clinical Impression: Cellulitis of breast - Discharge Information Instructions: Amoxicillin; Clavulanic Acid tablets, Mastitis, Mastitis, [id number] Referrals: Johnathan White MD [Primary Care Provider] - Forms: ED Department Discharge Additional Instructions: Augmentin 875mg BID. and warm compress. Follow up with PCP in Wednesday. Warm compress. Call or return to ER for any acute worsening condition. Sepsis Event Note (ED) - Focused Exam Vital Signs: Vital Signs Temp Pulse Resp BP Pulse Ox 05/24/20 14:29 98 F 81 18 159/62 H 98 - Problem List & Annotations (1) Cellulitis of breast SNOMED Code(s): 90170766 Code(s): N61.0 - MASTITIS WITHOUT ABSCESS Status: Acute Current Visit: Yes - Problem List Review Problem List Initiated/Reviewed/Updated: Yes - My Orders Last 24 Hours: My Active Orders 05/24/20 15:07 Breast Complete Lt [US] Stat - Assessment/Plan Last 24 Hours: My Active Orders 05/24/20 15:07 Breast Complete Lt [US] Stat Plan: Augmentin 875 mg BID.Warm compress. Follow with PCP on Wednesday
[2020-05-24 17:08] VITALS: BP 125/60; PULSE 79
== END 2020-05-24 15:55 | disposition home or self-care (01) ==
LOC: FB.ED 14:29
DX: N61.0 Mastitis without abscess (principal); I12.9 Hypertensive chronic kidney disease with stage 1 through stage 4 chronic kidney disease, or unspecified chronic kidney disease; E11.22 Type 2 diabetes mellitus with diabetic chronic kidney disease; N18.9 Chronic kidney disease, unspecified; J44.9 Chronic obstructive pulmonary disease, unspecified; E11.51 Type 2 diabetes mellitus with diabetic peripheral angiopathy without gangrene; Z79.4 Long term (current) use of insulin; Z79.899 Other long term (current) drug therapy
CPT/HCPCS: 36415; 86140; 99283; A9270

== ENCOUNTER 2020-06-17 08:30 | Day surgery (SDC) | payer MEDICARE, OTHER ==
--- NOTE | 2020-06-17 08:58 | PCM.SN.2 ---
- Free Text/Narrative Note: Pt examined and chart reviewed. breast was marked. there are no changes to the h+p.
[2020-06-17] MEDS: Bupivacaine 0.5% 30 ML SDV INJECT ONE (09:48)
[2020-06-17] MEDS: Lidocaine 1% with EPINEPHrine 1:100,000 20 ML MDV INJECT ONE (09:48)
--- NOTE | 2020-06-17 10:20 | PCM.OPNOTE ---
- General Post-Op/Procedure Note Date of Surgery/Procedure: 06/17/20 Operative Procedure(s): incision and drainage and biopsy of involuting breast mass Findings: 1. mastitis improving since visit 2. 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
[2020-06-17 16:25] VITALS: BP 133/78; PULSE 78
--- NOTE | 2020-06-18 10:41 | OR ---
DATE OF OPERATION: 06/17/2020 SURGEON: Kike Elizabeth MD PROCEDURE PERFORMED: Incision and drainage and biopsy of left breast mass. PREOPERATIVE DIAGNOSES: Mastitis and involuting fibroadenoma. POSTOPERATIVE DIAGNOSES: Mastitis and involuting fibroadenoma. INDICATIONS FOR PROCEDURE: This is a 69-year-old white female who has had a history since April of a mass below her left nipple with some underlying erythema. An ultrasound was obtained, which demonstrated what appears to be an involuting fibroadenoma. She has had some clearish, cloudy drainage from the area and when seen last week had an underlying mastitis as well as a palpable mass. She was offered and accepted an incision and drainage and biopsy to confirm that this is an involuting fibroadenoma. INTRAOPERATIVE FINDINGS: As follows, the mass roughly measured approximately 4 cm in diameter and involved the area underneath the left nipple. A necrotic cavity was encountered as well as the sinus tract connecting this cavity to the surface of the skin. Erythema which had been rather marked last week was markedly improved and 20 mL of 1:1 mixture of 1% lidocaine with epinephrine and 0.5% bupivacaine was used for the procedure. DESCRIPTION OF OPERATION: After the patient was prepped and draped in usual sterile manner, our local mixture was used to create a field block around the sinus tract into the area of the mass. A 3 cm curvilinear incision along the edge of the areolar-nipple complex and skin was then made medially. This allowed us to connect the sinus tract to the underlying cavity. More local was used to infiltrate the cavity, which allowed us to take some biopsies of some tissue at the base of the mass. This was passed off the field. Bleeding was controlled with a combination of electrocautery as well as Avitene powder, which gave us excellent hemostasis. Aquacel Ag was then packed into the wound. A bulky compressive dressing consisting of Kerlix covered by an ABD was then applied over the left breast and then this was taped into position. The patient tolerated the procedure well, was taken back. We will be seeing her back next week, and we will contact her with biopsy results. /[id number] /MODL
== END 2020-06-17 11:05 | disposition home or self-care (01) ==
LOC: FB.SDS 08:30
PROVIDERS: ATTEND Surgery
DX: D24.2 Benign neoplasm of left breast (principal); N61.0 Mastitis without abscess; N61.1 Abscess of the breast and nipple; E78.5 Hyperlipidemia, unspecified; I12.9 Hypertensive chronic kidney disease with stage 1 through stage 4 chronic kidney disease, or unspecified chronic kidney disease; E11.22 Type 2 diabetes mellitus with diabetic chronic kidney disease; N18.30 Chronic kidney disease, stage 3 unspecified; Z79.899 Other long term (current) drug therapy; Z79.82 Long term (current) use of aspirin; Z79.4 Long term (current) use of insulin; N25.81 Secondary hyperparathyroidism of renal origin; Z90.49 Acquired absence of other specified parts of digestive tract; Z98.890 Other specified postprocedural states
CPT/HCPCS: 19101; 82962; 88305; 88342; J3490

== ENCOUNTER 2021-09-19 10:48 | Inpatient (IN) | payer MEDICARE, OTHER, MEDICAID ==
[2021-09-19 11:18] LABS: BASE EXCESS VENOUS,POC 6 mmol/L (-2 - 3+); PCO2 VENOUS,POC 56 mmHg (41-51); PH VENOUS,POC 7.38 pH Units (7.32-7.43)
[2021-09-19 12:47] LABS: CORONAVIRUS COVID-19 NAA NEGATIVE (NEGATIVE)
[2021-09-19] MEDS ORDERED: cefTRIAXone 1 GM in Sodium Chloride 0.9% 50 ML IV SCH (16:15)
[2021-09-19] MEDS ORDERED: Sodium Chloride 0.9% 1,000 ML IV SCH (16:15)
[2021-09-19] MEDS ORDERED: Cocoa Butter/Phenylephrine Rectal Supp RECTAL PRN (16:19)
[2021-09-19] MEDS ORDERED: Albuterol/Ipratropium 3.0-0.5 MG/3 ML Neb Soln NEB PRN (16:19)
[2021-09-19] MEDS ORDERED: guaiFENesin 100 MG/5 ML Soln 5 ML UD Cup PO PRN (16:19)
[2021-09-19] MEDS ORDERED: Bisacodyl 10 MG Supp RECTAL PRN (16:19)
[2021-09-19] MEDS ORDERED: Loperamide 2 MG Cap PO PRN (16:19)
[2021-09-19] MEDS ORDERED: Acetaminophen 325 MG Tab PO PRN (16:19)
[2021-09-19] MEDS ORDERED: Aluminum Hydroxide/Magnesium Hydroxide Susp 30 ML Cup PO PRN (16:32)
[2021-09-19] MEDS ORDERED: Polyvinyl Alcohol 1.4% Ophth Soln 15 ML Bottle EYEBOTH PRN (16:36)
[2021-09-19] MEDS: cefTRIAXone 1 GM Vial IVPUSH SCH (17:45)
[2021-09-19] MEDS: Enoxaparin 40 MG/0.4 ML Syringe SUBCUT SCH (18:17)
[2021-09-19] MEDS: MOXIFLOXACIN 0.5% EYELF SCH ×2 (18:37→20:45)
[2021-09-19] MEDS: INSULIN ASPART 100 UNIT/ML SQ SCH (18:40)
[2021-09-19] MEDS: MIRTAZAPINE 7.5 MG PO SCH (20:31)
[2021-09-19] MEDS: Docusate Sodium/Sennosides 50-8.6 MG Tab *PTOM PO SCH (20:31)
[2021-09-19] MEDS: Melatonin 3 MG Tab *PTOM PO SCH (20:31)
[2021-09-19] MEDS: Acetaminophen 500 MG Tab *PTOM PO SCH (20:32)
[2021-09-19] MEDS: Rosuvastatin 20 MG Tab *PTOM PO SCH (20:32)
[2021-09-19] MEDS: Carvedilol 25 MG Tab *PTOM PO SCH (20:32)
[2021-09-19] MEDS: BUDESONIDE 180 MCG INH SCH (20:33)
[2021-09-19] MEDS: ERYTHROMYCIN BASE 0.5% EYELF SCH (20:33)
[2021-09-19] MEDS: Morphine 15 MG Tab.ER PO SCH (20:35)
[2021-09-19] MEDS: INSULIN DETEMIR 100 UNIT/ML SUBCUT SCH (20:38)
[2021-09-19] MEDS ORDERED: SEMAGLUTIDE 1 MG/0.75 ML SUBCUT SCH (21:00)
[2021-09-20] MEDS ORDERED: acetaZOLAMIDE 250 MG Tab PO ONE ×2 (08:40→08:43)
[2021-09-20] MEDS: INSULIN ASPART 100 UNIT/ML SQ SCH ×3 (09:01→18:01)
[2021-09-20] MEDS: Acetaminophen 500 MG Tab *PTOM PO SCH ×3 (09:07→21:21)
[2021-09-20] MEDS: Docusate Sodium/Sennosides 50-8.6 MG Tab *PTOM PO SCH ×2 (09:09→21:20)
[2021-09-20] MEDS: Pantoprazole 20 MG Tab, Delayed Release *PTOM PO SCH (09:10)
[2021-09-20] MEDS: amLODIPine 5 MG Tab *PTOM PO SCH (09:10)
[2021-09-20] MEDS: Aspirin 81 MG Tab.EC *PTOM PO SCH (09:12)
[2021-09-20] MEDS: Carvedilol 25 MG Tab *PTOM PO SCH ×2 (09:12→21:21)
[2021-09-20] MEDS: Escitalopram 20 MG Tab *PTOM PO SCH (09:12)
[2021-09-20] MEDS: CHOLECALCIFEROL 2000 UNIT PO SCH (09:13)
[2021-09-20] MEDS: MOXIFLOXACIN 0.5% EYELF SCH ×4 (09:14→21:19)
[2021-09-20] MEDS: BUDESONIDE 180 MCG INH SCH ×2 (09:14→21:19)
[2021-09-20] MEDS: POLYETHYLENE GLYCOL 17 GM PO SCH (09:15)
[2021-09-20] MEDS: Morphine 15 MG Tab.ER PO SCH ×2 (09:29→21:18)
[2021-09-20] MEDS: INSULIN DETEMIR 100 UNIT/ML SUBCUT SCH ×3 (10:05→21:22)
[2021-09-20] MEDS ORDERED: BUMETANIDE 1 MG PO SCH (12:00)
[2021-09-20] MEDS: cefTRIAXone 1 GM Vial IVPUSH SCH (17:59)
[2021-09-20] MEDS: Enoxaparin 40 MG/0.4 ML Syringe SUBCUT SCH (18:00)
[2021-09-20] MEDS: ERYTHROMYCIN BASE 0.5% EYELF SCH (21:19)
[2021-09-20] MEDS: MIRTAZAPINE 7.5 MG PO SCH (21:20)
[2021-09-20] MEDS: Melatonin 3 MG Tab *PTOM PO SCH (21:20)
[2021-09-20] MEDS: Rosuvastatin 20 MG Tab *PTOM PO SCH (21:21)
[2021-09-21] MEDS: INSULIN ASPART 100 UNIT/ML SQ SCH ×2 (08:15→11:59)
[2021-09-21] MEDS: CHOLECALCIFEROL 2000 UNIT PO SCH (08:16)
[2021-09-21] MEDS: Carvedilol 25 MG Tab *PTOM PO SCH (08:17)
[2021-09-21] MEDS: Escitalopram 20 MG Tab *PTOM PO SCH (08:18)
[2021-09-21] MEDS: Aspirin 81 MG Tab.EC *PTOM PO SCH (08:18)
[2021-09-21] MEDS: amLODIPine 5 MG Tab *PTOM PO SCH (08:19)
[2021-09-21] MEDS: Acetaminophen 500 MG Tab *PTOM PO SCH (08:19)
[2021-09-21] MEDS: Pantoprazole 20 MG Tab, Delayed Release *PTOM PO SCH (08:19)
[2021-09-21] MEDS: Docusate Sodium/Sennosides 50-8.6 MG Tab *PTOM PO SCH ×2 (08:19→21:47)
[2021-09-21] MEDS: BUDESONIDE 180 MCG INH SCH ×2 (08:29→21:53)
[2021-09-21] MEDS: POLYETHYLENE GLYCOL 17 GM PO SCH (08:30)
[2021-09-21] MEDS: INSULIN DETEMIR 100 UNIT/ML SUBCUT SCH ×2 (08:53→22:00)
[2021-09-21] MEDS: MOXIFLOXACIN 0.5% EYELF SCH ×4 (08:58→21:58)
[2021-09-21] MEDS: Morphine 15 MG Tab.ER PO SCH ×2 (09:10→21:50)
[2021-09-21] MEDS: Acetaminophen 500 MG Tab PO SCH ×2 (14:26→21:49)
[2021-09-21] MEDS: cefTRIAXone 1 GM Vial IVPUSH SCH (17:00)
[2021-09-21] MEDS: Enoxaparin 40 MG/0.4 ML Syringe SUBCUT SCH (17:43)
[2021-09-21] MEDS: Insulin Lispro 100 Unit/ML 3 ML KwikPen SUBCUT SCH (17:50)
[2021-09-21] MEDS: Carvedilol 25 MG Tab PO SCH (21:46)
[2021-09-21] MEDS: Melatonin 3 MG Tab PO SCH (21:47)
[2021-09-21] MEDS: Mirtazapine 15 MG Tab PO SCH (21:48)
[2021-09-21] MEDS: ERYTHROMYCIN BASE 0.5% EYELF SCH (21:51)
[2021-09-21] MEDS: Rosuvastatin 20 MG Tab PO SCH (21:55)
[2021-09-22 07:08] LABS: BASE EXCESS VENOUS,POC 3 mmol/L (-2 - 3+); PCO2 VENOUS,POC 65 mmHg (41-51); PH VENOUS,POC 7.29 pH Units (7.32-7.43)
[2021-09-22] MEDS: Insulin Lispro 100 Unit/ML 3 ML KwikPen SUBCUT SCH ×3 (10:00→18:26)
[2021-09-22] MEDS: Polyethylene Glycol 3350 Powder 17 GM Packet PO SCH (10:03)
[2021-09-22] MEDS: BUDESONIDE 180 MCG INH SCH ×2 (10:04→21:00)
[2021-09-22] MEDS: MOXIFLOXACIN 0.5% EYELF SCH ×4 (10:08→21:09)
[2021-09-22] MEDS: Carvedilol 25 MG Tab PO SCH ×2 (10:18→21:05)
[2021-09-22] MEDS: Bumetanide 1 MG Tab PO SCH (10:18)
[2021-09-22] MEDS: Aspirin 81 MG Tab.EC PO SCH (10:19)
[2021-09-22] MEDS: Escitalopram 20 MG Tab PO SCH (10:22)
[2021-09-22] MEDS: amLODIPine 5 MG Tab PO SCH (10:23)
[2021-09-22] MEDS: Pantoprazole 20 MG Tab, Delayed Release *PTOM PO SCH (10:24)
[2021-09-22] MEDS: Docusate Sodium/Sennosides 50-8.6 MG Tab *PTOM PO SCH ×2 (10:24→21:08)
[2021-09-22] MEDS: Acetaminophen 500 MG Tab PO SCH ×3 (10:25→21:03)
[2021-09-22] MEDS: Cholecalciferol (Vitamin D3) 25 MCG Tab PO SCH (10:26)
[2021-09-22] MEDS: Morphine 15 MG Tab.ER PO SCH ×2 (10:38→21:02)
[2021-09-22] MEDS: INSULIN DETEMIR 100 UNIT/ML SUBCUT SCH ×2 (10:41→21:27)
[2021-09-22] MEDS ORDERED: Folic Acid/Vitamin B Complex With C Cap PO SCH (13:00)
[2021-09-22] MEDS: Diclofenac Sodium 1% Gel 100 GM Tube TOP SCH ×2 (16:34→21:12)
[2021-09-22] MEDS: DICLOFENAC SODIUM 1% TOP SCH ×2 (16:42→21:13)
[2021-09-22] MEDS: Enoxaparin 40 MG/0.4 ML Syringe SUBCUT SCH (17:10)
[2021-09-22] MEDS: Cefdinir 300 MG Cap PO SCH (21:01)
[2021-09-22] MEDS: Mirtazapine 15 MG Tab PO SCH (21:04)
[2021-09-22] MEDS: Melatonin 3 MG Tab PO SCH (21:05)
[2021-09-22] MEDS: Rosuvastatin 20 MG Tab PO SCH (21:06)
[2021-09-22] MEDS: ERYTHROMYCIN BASE 0.5% EYELF SCH (21:07)
[2021-09-23] MEDS: BUDESONIDE 180 MCG INH SCH (08:56)
[2021-09-23] MEDS: Bumetanide 1 MG Tab PO SCH (08:58)
[2021-09-23] MEDS: Aspirin 81 MG Tab.EC PO SCH (08:59)
[2021-09-23] MEDS: Carvedilol 25 MG Tab PO SCH (08:59)
[2021-09-23] MEDS: Escitalopram 20 MG Tab PO SCH (08:59)
[2021-09-23] MEDS: Polyethylene Glycol 3350 Powder 17 GM Packet PO SCH (09:00)
[2021-09-23] MEDS: amLODIPine 5 MG Tab PO SCH (09:00)
[2021-09-23] MEDS: Cefdinir 300 MG Cap PO SCH (09:01)
[2021-09-23] MEDS: Docusate Sodium/Sennosides 50-8.6 MG Tab *PTOM PO SCH (09:02)
[2021-09-23] MEDS: Acetaminophen 500 MG Tab PO SCH (09:02)
[2021-09-23] MEDS: Pantoprazole 20 MG Tab, Delayed Release *PTOM PO SCH (09:02)
[2021-09-23 09:07] VITALS: BP 138/67; PULSE 76
[2021-09-23] MEDS: Insulin Lispro 100 Unit/ML 3 ML KwikPen SUBCUT SCH (09:10)
[2021-09-23] MEDS: Cholecalciferol (Vitamin D3) 25 MCG Tab PO SCH (09:13)
[2021-09-23] MEDS: MOXIFLOXACIN 0.5% EYELF SCH (09:15)
[2021-09-23] MEDS: Diclofenac Sodium 1% Gel 100 GM Tube TOP SCH (09:41)
[2021-09-23] MEDS: DICLOFENAC SODIUM 1% TOP SCH (09:42)
[2021-09-23] MEDS: Morphine 15 MG Tab.ER PO SCH (09:44)
[2021-09-23] MEDS: INSULIN DETEMIR 100 UNIT/ML SUBCUT SCH (09:44)
== END 2021-09-23 10:30 | DRG 690 ==
LOC: FB.ED 10:48 → FB.MS 15:43 → OBSVTOIN 09-21 11:24
PROVIDERS: ADMIT Family Medicine; ATTEND Family Medicine
DX: J18.9 Pneumonia, unspecified organism (principal); J96.01 Acute respiratory failure with hypoxia; J96.02 Acute respiratory failure with hypercapnia; N30.01 Acute cystitis with hematuria; N17.9 Acute kidney failure, unspecified; J98.11 Atelectasis; I13.0 Hypertensive heart and chronic kidney disease with heart failure and stage 1 through stage 4 chronic kidney disease, or unspecified chronic kidney disease; Z68.42 Body mass index [BMI] 45.0-49.9, adult; E11.51 Type 2 diabetes mellitus with diabetic peripheral angiopathy without gangrene; J96.11 Chronic respiratory failure with hypoxia; J96.12 Chronic respiratory failure with hypercapnia; G81.94 Hemiplegia, unspecified affecting left nondominant side; Z20.822 Contact with and (suspected) exposure to COVID-19; J44.9 Chronic obstructive pulmonary disease, unspecified; E11.22 Type 2 diabetes mellitus with diabetic chronic kidney disease; E66.01 Morbid (severe) obesity due to excess calories; Z96.649 Presence of unspecified artificial hip joint; K21.9 Gastro-esophageal reflux disease without esophagitis; E78.00 Pure hypercholesterolemia, unspecified; M19.90 Unspecified osteoarthritis, unspecified site; F41.9 Anxiety disorder, unspecified; G89.29 Other chronic pain; M54.9 Dorsalgia, unspecified; I50.9 Heart failure, unspecified; N18.32 Chronic kidney disease, stage 3b; R79.82 Elevated C-reactive protein (CRP); R79.89 Other specified abnormal findings of blood chemistry; M48.061 Spinal stenosis, lumbar region without neurogenic claudication; Z87.891 Personal history of nicotine dependence; Z79.4 Long term (current) use of insulin; Z86.73 Personal history of transient ischemic attack (TIA), and cerebral infarction without residual deficits; Z79.82 Long term (current) use of aspirin; Z79.899 Other long term (current) drug therapy; Z90.49 Acquired absence of other specified parts of digestive tract; Z79.01 Long term (current) use of anticoagulants; Z79.51 Long term (current) use of inhaled steroids
CPT/HCPCS: 0241U; 36415; 71045; 80048; 80053; 81001; 82947; 83880; 84484; 85025; 86140; 87086; 87088; 87186; 93005; 99285; 93010; 96372; 96374; 96376; 99222; 99232; 99238; 99283; A9270-GY; G0378; J0696; J1650; J1815; J1815-GY; J7030; U0002

== ENCOUNTER 2021-10-24 11:12 | Emergency (ER) | payer MEDICARE, OTHER, MEDICAID ==
[2021-10-24] MEDS ORDERED: Sodium Chloride 0.9% 10 ML Syringe FLUSH PRN (11:21)
[2021-10-24 11:52] LABS: BASE EXCESS VENOUS,POC 6 mmol/L (-2 - 3+); PCO2 VENOUS,POC 66 mmHg (41-51); PH VENOUS,POC 7.33 pH Units (7.32-7.43)
[2021-10-24] MEDS ORDERED: Polyethylene Glycol 3350 Powder 17 GM Packet PO ONE (12:28)
[2021-10-24] MEDS ORDERED: methylPREDNISolone Sodium Succinate 40 MG/1 ML SDV IVPUSH ONE (12:29)
[2021-10-24] MEDS ORDERED: acetaZOLAMIDE 250 MG Tab PO ONE (12:34)
[2021-10-24] MEDS ORDERED: Sodium Chloride 0.9% 1,000 ML IV ONE (13:03)
[2021-10-24] MEDS ORDERED: Cephalexin 500 MG Cap PO ONE (13:38)
[2021-10-24] MEDS ORDERED: Glycerin Adult 2 GM Supp RECTAL ONE (14:21)
[2021-10-24 19:55] VITALS: BP 155/76; PULSE 85
== END 2021-10-24 15:00 | disposition home or self-care (01) ==
LOC: FB.ED 11:12
DX: N30.90 Cystitis, unspecified without hematuria (principal); K59.01 Slow transit constipation; E11.10 Type 2 diabetes mellitus with ketoacidosis without coma; J44.9 Chronic obstructive pulmonary disease, unspecified; E78.00 Pure hypercholesterolemia, unspecified; I12.9 Hypertensive chronic kidney disease with stage 1 through stage 4 chronic kidney disease, or unspecified chronic kidney disease; E11.22 Type 2 diabetes mellitus with diabetic chronic kidney disease; N18.9 Chronic kidney disease, unspecified; Z86.73 Personal history of transient ischemic attack (TIA), and cerebral infarction without residual deficits; Z87.891 Personal history of nicotine dependence; Z79.82 Long term (current) use of aspirin; Z79.4 Long term (current) use of insulin; Z79.899 Other long term (current) drug therapy
CPT/HCPCS: 36415; 71045; 74018; 80048; 81001; 84484; 85027; 87086; 87088; 87186; 96374; 99285-25; A9270-GY; J2920; J7030

== ENCOUNTER 2022-03-02 10:42 | Emergency (ER) | payer MEDICARE, OTHER, MEDICAID ==
[2022-03-02] MEDS ORDERED: methylPREDNISolone Sodium Succinate 125 MG/2 ML SDV IVPUSH ONE (10:43)
[2022-03-02] MEDS ORDERED: Albuterol/Ipratropium 3.0-0.5 MG/3 ML Neb Soln INH ONE (10:43)
[2022-03-05 10:33] LABS: ESTIMATED GFR 48 mL/min (>60)
[2022-03-05 10:41] LABS: PO2 ARTERIAL,POC 58 mmHg (83-108)
== END 2022-03-02 13:03 | disposition home or self-care (01) ==
LOC: FB.ED 10:42
DX: R09.02 Hypoxemia (principal); G47.33 Obstructive sleep apnea (adult) (pediatric)
CPT/HCPCS: 36415; 71045; 80048; 82803; 83605; 83880; 84484; 85025; 85379; 86140; 94640; 96374; 99283; 99285; J2930; J7620

== ENCOUNTER 2022-03-22 18:21 | Emergency (ER) | payer MEDICARE, OTHER, MEDICAID ==
[2022-03-22 19:03] LABS: PO2 ARTERIAL,POC 64 mmHg (83-108)
[2022-03-22 19:10] LABS: ESTIMATED GFR 40 mL/min (>60)
[2022-03-22] MEDS ORDERED: Sodium Chloride 0.9% 1,000 ML IV ONE (19:25)
[2022-03-22] MEDS ORDERED: Gentamicin 0.3% Ophth Soln 5 ML Bottle EYEBOTH STA (19:26)
[2022-03-22 22:03] VITALS: BP 124/59; PULSE 72
== END 2022-03-22 22:37 | disposition home or self-care (01) ==
LOC: FB.ED 18:21
DX: J96.02 Acute respiratory failure with hypercapnia (principal); R82.81 Pyuria; H10.023 Other mucopurulent conjunctivitis, bilateral; I10 Essential (primary) hypertension; J44.9 Chronic obstructive pulmonary disease, unspecified; E11.9 Type 2 diabetes mellitus without complications; Z79.82 Long term (current) use of aspirin; Z79.899 Other long term (current) drug therapy; Z90.49 Acquired absence of other specified parts of digestive tract
CPT/HCPCS: 36415; 51701; 80048; 81001; 82803; 85027; 86140; 87070; 87077; 87086; 87186; 87205; 96360; 99283; A9270; J7030